=== PATIENT | female | born 1970 | race Caucasian/White ===

== ENCOUNTER 2021-04-22 13:45 | Emergency (ER) | payer SELFPAY ==
[~2021-04-22] VITALS: Ht 160 cm; Wt 64.4 kg
[~2021-04-22 13:45] MED LIST: KEFLEX500 MG PO; PREDNISONE10 MG PO
[2021-04-22 17:13] VITALS: BP 170/90
== END 2021-04-22 17:14 | disposition home or self-care (01) ==
LOC: ED 13:45
DX: I10 Essential (primary) hypertension (principal)

== ENCOUNTER → 2021-04-24 | Outpatient (CLI) | payer SELFPAY ==
[2021-04-28 14:07] LABS: ALDOSTERONE, SERUM 1.8 ng/dL (0.0-30.0)
[2021-04-28 15:06] LABS: DOPAMINE, URINE 44 ug/L (Undefined)
== END | disposition home or self-care (01) ==
LOC: LAB 12:39
PROVIDERS: ATTEND Family Medicine
DX: I16.0 Hypertensive urgency (principal)